=== PATIENT | male | born 2000 | race Caucasian/White ===

== ENCOUNTER 2019-03-09 18:02 | Emergency (ER) | payer SELFPAY ==
[~2019-03-09] VITALS: Ht 172.7 cm; Wt 75.0 kg
[2019-03-09 18:14] VITALS: BP 133/69; PULSE 72; RESP 20; Ht 172.7 cm; Wt 75.0 kg
[2019-03-09] MEDS ORDERED: KETOROLAC 30 MG INJ IM STA (19:40)
[2019-03-09] MEDS ORDERED: LIDOCAINE 2% (MDV) 20 ML INJ INJ STA (19:40)
--- NOTE | 2019-03-09 19:49 | ERD ---
ER Documentation Chief Complaint Chief Complaint L eye lac after being hit by a skateboard; denies syncope; blurry vision HPI 18-year-old male with no reported past medical or surgical history who presents status post injury to left eyebrow. Patient states he was hit by a skateboard over the left eye along the eyebrow ridge sustaining laceration. He denies any LOC, other trauma, blurry vision, or any other concerning symptoms. He denies a ny allergies to medications and reports all vaccinations up-to-date. Time examination patient is no acute distress noted with laceration to the left eye ridge which is not bleeding. ROS All systems reviewed and are negative except as per history of present illness. Medications Home Meds Active Scripts Acetaminophen* (Tylophen*) 500 Mg Capsule, 1 CAP PO Q6H PRN for PAIN AND OR ELEVATED TEMP, #20 CAP Prov:BRIAN JACKSON PA-C 03/09/19 PMhx/Soc History of Surgery: No Anesthesia Reaction: No Hx Neurological Disorder: No Hx Respiratory Disorders: No Hx Cardiac Disorders: No Hx Psychiatric Problems: No Hx Miscellaneous Medical Probl: No Hx Alcohol Use: No Hx Substance Use: No Hx Tobacco Use: No Smoking Status: Never smoker FmHx Family History: No diabetes, No coronary disease, No other Physical Exam Vitals Vital Signs Date Temp Pulse Resp B/P (MAP) Pulse Ox O2 O2 Flow FiO2 Time Delivery Rate 03/09/19 98.4 72 20 133/69 97 18:14 (90) Physical Exam I have reviewed the triage vital signs. Const: Well nourished, well developed, appears stated age Eyes: PERRL, no conjunctival injection, normal ocular movement in all planes, and grossly intact HENT: NCAT, Neck supple without meningismus, small half centimeter jagged laceration to left eyebrow ridge noted CV: RRR, Warm, well-perfused extremities RESP: CTAB, Unlabored respiratory effort GI: soft, non-tender, non-distended, no masses MSK: No gross deformities appreciated Skin: Warm, dry. No rashes Neuro: grossly non focal Psych: Appropriate mood and affect. Results 24 hrs Current Medications Medications Dose Sig/Tyra Start Time Status Last (Trade) Ordered Route PRN Stop Time Admin Dose Reason Admin Lidocaine 20 ml ONCE STAT 03/09/19 DC (Xylocaine INJ 19:40 2% (Mdv) 20 4/24/19 19:41 ml) Ketorolac 30 mg ONCE STAT 03/09/19 DC 03/09/19 Tromethamine IM 19:40 19:52 (Toradol) 03/09/19 19:41 Diphtheria/ 0.5 ml ONCE ONCE 03/09/19 DC 03/09/19 Tetanus/Acell IM* 20:00 19:52 Pertussis 03/09/19 20:01 (Adacel) Procedures/MDM 18-year-old male presents with laceration to left eyebrow ridge. He denies any concerning ocular symptoms. Able to move in all planes and blink without issue. Doubt any ocular muscle involvement. No evolvement of the eye itself. Unknown tetanus shot status. ED course; pain control, Tdap Laceration Repair by me: Anesthesia: 1% lidocaine locally Location: L eyebrow ridge Tendon/Joint/Nerves: No injury Foreign body: None detected after copious irrigation and exploration Technique: Simple Interrupted Sutures x 5 Complexity: No subcutaneous sutures/mucosal repair/edge excision Post Closure Length: 1 cm Patient's bleeding was easily controlled in the department and there is no indication of anemia. No evidence of compartment syndrome, neurologic injury, vascular injury, open joint, tendon laceration, or foreign body. Patient is appropriate for outpatient follow up. 48 hour wound check. Scar minimization instructions given. DISPOSITION PLAN: We discussed follow up with the patient's primary care doctor within 24 to 48 hours. Patient counseled regarding my diagnostic impression and care plan. Prior to discharge all questions answered. Pt agrees with treatment plan and u nderstands strict return precautions. Precautionary instructions provided including instructions to return to the ER if not improving or for any worsening or changing symptoms or concerns. Disclaimer: Inadvertent spelling and grammatical errors are likely due to EHR/dictation software use and do not reflect on the overall quality of patient care. Also, please note that the electronic time recorded on this note does not necessarily reflect the actual time of the patient encounter. Departure Diagnosis: Primary Impression: Laceration, eyelid, left Condition: Stable BRIAN JACKSON PA-C Mar 09, 2019 19:49
[2019-03-09] MEDS ORDERED: DIPHTH/TET/ACEL PERTUSS (ADULT) 0.5 ML VIAL IM* ONE (20:00)
[2019-03-09] MEDS ORDERED: ACET500C5 PO (22:56)
== END 2019-03-09 23:09 | disposition home or self-care (01) ==
LOC: FTE 18:02
DX: S01.112A Laceration without foreign body of left eyelid and periocular area, initial encounter (principal); W22.8XXA Striking against or struck by other objects, initial encounter; Y92.9 Unspecified place or not applicable; Z23 Encounter for immunization
CPT/HCPCS: 12011; 90471; 90715; 96372; 99284; J1885

== ENCOUNTER 2019-03-11 15:44 | Emergency (ER) | payer MEDICAID ==
[~2019-03-11] VITALS: Wt 70.0 kg
[~2019-03-11 15:44] MED LIST: ACET500C5 PO
[2019-03-11 15:46] VITALS: BP 117/60; PULSE 84; RESP 18
--- NOTE | 2019-03-12 02:25 | ERD ---
ER Documentation Chief Complaint Chief Complaint WOUND CHECK 2 DAYS POST SUTURE PLACEMENT HPI 18-year-old male presenting to the emergency department for wound check to the left eyelid. Patient also reports redness noted to the lateral portion of the left eye. He denies any redness surrounding the laceration. He denies any drainage. He denies any fevers or chills or other symptoms at this time. Denies any double vision or changes to his vision. ROS All systems reviewed and are negative except as per history of present illness. Medications Home Meds Active Scripts Acetaminophen* (Tylophen*) 500 Mg Capsule, 1 CAP PO Q6H PRN for PAIN AND OR ELEVATED TEMP, #20 CAP Prov:BRIAN JACKSON PA-C 03/09/19 PMhx/Soc Medical and Surgical Hx: pt denies Medical Hx History of Surgery: No Anesthesia Reaction: No Hx Neurological Disorder: No Hx Respiratory Disorders: No Hx Cardiac Disorders: No Hx Psychiatric Problems: No Hx Miscellaneous Medical Probl: No Hx Alcohol Use: No Hx Substance Use: No Hx Tobacco Use: No FmHx Family History: No diabetes Physical Exam Vitals Vital Signs Date Temp Pulse Resp B/P (MAP) Pulse Ox O2 O2 Flow FiO2 Time Delivery Rate 03/11/19 98.0 84 18 117/60 98 15:46 (79) Physical Exam Const: No acute distress Head: Atraumatic Eyes: Subconjunctival hemorrhage noted to the lateral portion of the conjunctival. ENT: Normal External Ears, Nose and Mouth. Neck: Full range of motion. No meningismus. Resp: No respiratory distress. Skin: [address] over well-healing laceration noted to the left eyelid. No significance or any erythema. No discharge. Back: No midline or flank tenderness Ext: No cyanosis, or edema Neur: Awake and alert Psych: Normal Mood and Affect Procedures/MDM Wound shows no evidence of infection, foreign body, neurologic injury, vascular injury, open joint or tendon laceration. Patient appropriate for outpatient follow up. Patient appears to have a subconjunctival hemorrhage of the left eye with no evidence of visual acuity deficits. Ophthalmologic Assessment: Patient's ocular symptoms have stabilized while they have been evaluated in the department and are appropriate for outpatient work up. No evidence of ruptured globe, retinal detachment, acute angle closure glaucoma, or deep space infection. Plan for 24 hour ophthalmologic follow up. Departure Diagnosis: Primary Impression: Subconjunctival hemorrhage of left eye Additional Impression: Encounter for wound re-check Condition: Fair Patient Instructions: Subconjunctival Hemorrhage, Wound Check, Lac F/U (No Infection) Referrals: [facility] YOU HAVE RECEIVED A MEDICAL SCREENING EXAM AND THE RESULTS INDICATE THAT YOU DO NOT HAVE A CONDITION THAT REQUIRES URGENT TREATMENT IN THE EMERGENCY DEPARTMENT. FURTHER EVALUATION AND TREATMENT OF YOUR CONDITION CAN WAIT UNTIL YOU ARE SEEN IN YOUR DOCTORS OFFICE WITHIN THE NEXT 1-2 DAYS. IT IS YOUR RESPONSIBILITY TO MAKE AN APPOINTMENT FOR FOL-UP CARE. IF YOU HAVE A PRIMARY DOCTOR --you should call your primary doctor and schedule an appointment IF YOU DO NOT HAVE A PRIMARY DOCTOR YOU CAN CALL OUR PHYSICIAN REFERRAL HOTLINE AT IF YOU CAN NOT AFFORD TO SEE A PHYSICIAN YOU CAN CHOSE FROM THE FOLLOWING [facility] [address] [facility] [address] [facility] [facility] [address] [facility] [address] [facility] [address] [facility] [facility]. [address] Additional Instructions: Return in 5-7 days from today for suture removal. Call your primary care doctor TOMORROW for an appointment during the next 1-2 days.See the doctor sooner or return here if your condition worsens before your appointment time. SALVADOR DIAZ PA-C Mar 12, 2019 02:25
== END 2019-03-11 17:34 | disposition home or self-care (01) ==
LOC: FTE 15:44
DX: H11.32 Conjunctival hemorrhage, left eye (principal)
CPT/HCPCS: 99281

== ENCOUNTER 2019-03-19 12:09 | Emergency (ER) | payer MEDICAID ==
[~2019-03-19] VITALS: Ht 175.3 cm; Wt 67.1 kg
[2019-03-19 12:15] VITALS: BP 132/70; PULSE 82; RESP 18; Ht 175.3 cm; Wt 67.1 kg
--- NOTE | 2019-03-19 14:45 | ERD ---
ER Documentation Chief Complaint Chief Complaint left eyebrow lac 2 day wound check HPI 18-year-old healthy male who presents for suture removal after sustaining injury to laceration left eyebrow ridge. Patient reports some residual numbness to the area of laceration but otherwise without complaint. Blinking and able to track in all visual planes. ROS All systems reviewed and are negative except as per history of present illness. Medications Home Meds Active Scripts Acetaminophen* (Tylophen*) 500 Mg Capsule, 1 CAP PO Q6H PRN for PAIN AND OR ELEVATED TEMP, #20 CAP Prov:BRIAN JACKSON PA-C 03/09/19 PMhx/Soc History of Surgery: No Anesthesia Reaction: No Hx Neurological Disorder: No Hx Respiratory Disorders: No Hx Cardiac Disorders: No Hx Psychiatric Problems: No Hx Miscellaneous Medical Probl: No Hx Alcohol Use: No Hx Substance Use: No Hx Tobacco Use: No Smoking Status: Never smoker FmHx Family History: No diabetes, No coronary disease, No other Physical Exam Vitals Vital Signs Date Temp Pulse Resp B/P (MAP) Pulse Ox O2 O2 Flow FiO2 Time Delivery Rate 03/19/19 97.5 82 18 132/70 97 12:15 (90) Physical Exam I have reviewed the triage vital signs. Const: Well nourished, well developed, appears stated age Eyes: PERRL, left eyebrow ridge sutures removed without issue, no bleeding, able to think and track on all the visual winkler, numbness to the area of laceration HENT: NCAT, Neck supple without meningismus CV: RRR, Warm, well-perfused extremities RESP: CTAB, Unlabored respiratory effort GI: soft, non-tender, non-distended, no masses MSK: No gross deformities appreciated Skin: Warm, dry. No rashes Neuro: grossly non focal Psych: Appropriate mood and affect. Procedures/MDM 18-year-old male resents for suture removal following injury/laceration to left eyebrow ridge. Still with some residual numbness but otherwise neurovascularly intact. Able to blink without issue, tracking in all visual planes, maintain visual acuity with no visual complaints. Sutures removed without issue. No bleeding. Patient advised to continue to monitor site of numbness, follow-up with PMD, information given for referral to eye care center DISPOSITION PLAN: We discussed follow up with the patient's primary care doctor within 24 to 48 hours. Patient counseled regarding my diagnostic impression and care plan. Prior to discharge all questions answered. Pt agrees with treatment plan and understands strict return precautions. Precautionary instructions provided including instructions to return to the ER if not improving or for any worsening or changing symptoms or concerns. Disclaimer: Inadvertent spelling and grammatical errors are likely due to EHR/dictation software use and do not reflect on the overall quality of patient care. Also, please note that the electronic time recorded on this note does not necessarily reflect the actual time of the patient encounter. Departure Diagnosis: Primary Impression: Encounter for removal of sutures Condition: Stable Patient Instructions: Wound Check, Lac F/U (No Infection) Referrals: [facility] Hours: Mon - Thu 9:00 AM - 5:00 PM Additional Instructions: Call your primary care doctor TOMORROW for an appointment during the next 2-3 days.See the doctor sooner or return here if your condition worsens before your appointment time. BRIAN JACKSON PA-C March 19, 2019 14:45
== END 2019-03-19 14:55 | disposition home or self-care (01) ==
LOC: FTE 12:09
DX: Z48.02 Encounter for removal of sutures (principal)
CPT/HCPCS: 99281